=== PATIENT | male | born 1960 | race American Indian/Alaskan Native ===

== ENCOUNTER 2016-05-30 07:54 | Emergency (ER) | payer OTHER ==
[2016-05-30] MEDS ORDERED: AFRIN ONE (08:48)
[2016-05-30] MEDS ORDERED: AFRIN NS ONE (08:49)
[2016-05-30] MEDS ORDERED: WATER FOR INJ (PF) 10 ML ONE (09:07)
[2016-05-30 09:47] LABS: Basophils % (Auto) 0.3 % (0.0-1.8); Eosinophils % (Auto) 1.7 % (0.0-4.3); Hematocrit 43.4 % (35.5-45.6); Hemoglobin 14.8 gm/dl (11.8-15.2); Mean Corpuscular HGB Conc 34 % (32-34); Mean Corpuscular Hemoglobin 32 pg (28-32); Mean Corpuscular Volume 93 fl (84-94); Platelet Count 226 K/mm3 (140-440); Red Blood Count 4.65 M/mm3 (3.65-5.03); Red Cell Distribution Width 12.7 % (13.2-15.2); White Blood Count 7.8 K/mm3 (4.5-11.0)
[2016-05-30 10:22] LABS: Partial Thromboplastin Time 25.6 Sec. (24.2-36.6)
[2016-05-30 10:45] VITALS: BP 146/97
--- NOTE | 2016-05-30 11:22 | Emergency Department Report ---
HPI - General Chief Complaint: Nosebleed Time Seen by Provider: 05/30/16 09:23 - HPI HPI: Chief complaint: Nosebleed HPI: Patient is 55-year-old male with a history of borderline hypertension who recently started taking 3 baby aspirins every third day on the advice of his primary care doctor and began having a nosebleed yesterday afternoon. Patient states it's been intermittent. He states it would stop after pressure and then start back. Started again this morning when he lifted his toolbox. Mode of arrival: private car Source: Patient Began: Yesterday afternoon Duration: Intermittent Context: No previous history of nosebleeds Quality: Sharp pain to the right nares with pressure Severity: 3 out of 10 Improved with: Pressure Worsened with: Lifting Associated signs and symptoms: See above ED Past Medical Hx - Past Medical History Previous Medical History?: No - Surgical History Past Surgical History?: Yes Additional Surgical History: R knee. R hand - Social History Smoking Status: Never Smoker Substance Use Type: None - Medications Home Medications: Home Medications Medication Instructions Recorded Confirmed Last Taken Type Aspirin [Aspirin BABY CHEW TAB] 3 tab PO 3XW 05/30/16 05/30/16 Unknown History amLODIPine [Norvasc] 5 mg PO DAILY #30 tab 05/30/16 Unknown Rx ED Review of Systems ROS: Stated complaint: NOSE BLEED Other details as noted in HPI ROS Constitutional: No fever ENT: No uri symptoms Cardiovascular: No chest pain Respiratory: No sob or cough GI: No nausea vomiting or diarrhea : No dysuria frequency or urgency, Skin: No rash Neuro: No focal weakness or numbness Psych: No depression Dae/lymph: No edema Physical Exam - Physical Exam Vital Signs: Vital Signs 05/30/16 08:07 Temperature 97.5 F L Pulse Rate 79 Respiratory 16 Rate Blood Pressure 193/122 O2 Sat by Pulse 98 Oximetry Physical Exam: GENERAL: The patient is well-developed well-nourished . HEENT: Normocephalic. Atraumatic. Extraocular motions are intact. Patient has moist mucous membranes. Intermittent bleeding from patient's right nares. NECK: Supple. No meningitic signs are noted. There is no adenopathy noted. CHEST/LUNGS: Clear to auscultation. There is no respiratory distress noted. HEART/CARDIOVASCULAR: Regular. There is no tachycardia. There is no gallop rub or murmur. ABDOMEN: Abdomen is soft, nontender. Patient has normal bowel sounds. There is no abdominal distention. SKIN: There is no rash. There is no edema. There is no diaphoresis. NEURO: The patient is awake, alert, and oriented. The patient is cooperative. The patient has no focal neurologic deficits. The patient has normal speech. MUSCULOSKELETAL: There is no tenderness or deformity. There is no limitation range of motion. There is no evidence of acute injury. ED Course Vital Signs 05/30/16 08:07 Temperature 97.5 F L Pulse Rate 79 Respiratory 16 Rate Blood Pressure 193/122 O2 Sat by Pulse 98 Oximetry - Reevaluation(s) Reevaluation #1: 05/30/16 09:27 Afrin and cotton pledgets did not control the bleeding and an anterior Rhino Rocket was placed. Bleeding slowed significantly. 05/30/16 11:22 Bleeding controlled with Rhino Rocket. ED Medical Decision Making - Lab Data Result diagrams: 05/30/16 09:34 Laboratory Tests 05/30/16 09:34 PT 13.1 INR 1.00 APTT 25.6 Critical care attestation.: If time is entered above; I have spent that time in minutes in the direct care of this critically ill patient, excluding procedure time. ED Disposition Clinical Impression: Epistaxis Disposition: DISCHARGED TO HOME OR SELFCARE Is pt being admited?: No Does the pt Need Aspirin: No Instructions: Epistaxis (ED) Prescriptions: amLODIPine [Norvasc] 5 mg PO DAILY #30 tab Referrals: NATALIE ROJO MD [Staff Physician] - 06/02/16 (Dr. Rojo is an ear nose and throat doctor.) follow-up, if ear nose and throat doctor at the [facility] on Thursday [Other] - 3-5 Days Time of Disposition: 11:37
== END 2016-05-30 11:30 | disposition home or self-care (01) ==
LOC: ED 07:54
DX: R04.0 Epistaxis (principal)
CPT/HCPCS: 36415; 85025; 85610; 85730; 99283